=== PATIENT | female | born 1995 | race American Indian/Alaskan Native ===

== ENCOUNTER 2016-08-07 08:42 | Emergency (ER) | payer SELFPAY ==
[2016-08-07 08:50] VITALS: BP 119/81
--- NOTE | 2016-08-07 10:13 | Emergency Department Report ---
ED Female HPI - General Chief complaint: Urogenital-Female Stated complaint: PAINFUL URINATION Time Seen by Provider: 08/07/16 10:13 Source: patient Mode of arrival: Ambulatory Limitations: No Limitations - History of Present Illness MD Complaint: dysuria -: Gradual, days(s) Radiation: non-radiating Severity: moderate Severity scale (0 -10): 5 Quality: burning Consistency: constant Improves with: none Worsens with: urination Associated Symptoms: nausea/vomiting (nausea along), dysuria. denies: vaginal discharge, vaginal bleeding, abdominal pain, fever/chills, loss of appetite, hematuria - Related Data Previous Rx's Medication Instructions Recorded Last Taken Type Amoxicillin [Amoxicillin TAB] 875 mg PO BID #20 tablet 08/29/14 Unknown Rx Neomy/Polymyx B/Hc (Otic) Soln 4 drops OT TID 10 Days 08/29/14 Unknown Rx [Cortisporin (Otic) Soln] Phenazopyridine [Pyridium] 200 mg PO BID #9 tab 08/07/16 Unknown Rx Sulfamethoxazole/Trimethoprim 1 each PO BID #10 tablet 08/07/16 Unknown Rx [Bactrim DS TAB] Allergies Allergy/AdvReac Type Severity Reaction Status Date / Time No Known Allergies Allergy Verified 08/29/14 08:08 ED Review of Systems ROS: Stated complaint: PAINFUL URINATION Other details as noted in HPI Constitutional: denies: see HPI, chills, fever, malaise Eyes: denies: eye discharge Respiratory: no symptoms reported. denies: cough, orthopnea, shortness of breath, wheezing Cardiovascular: denies: chest pain, palpitations, syncope Gastrointestinal: nausea. denies: abdominal pain, vomiting, diarrhea, constipation Genitourinary: urgency, dysuria, frequency Musculoskeletal: denies: back pain Skin: denies: rash, lesions Neurological: denies: headache, weakness ED Past Medical Hx - Past Medical History Previous Medical History?: No - Surgical History Past Surgical History?: No - Social History Smoking Status: Never Smoker Substance Use Type: Alcohol - Medications Home Medications: Home Medications Medication Instructions Recorded Confirmed Last Taken Type Amoxicillin [Amoxicillin TAB] 875 mg PO BID #20 tablet 08/29/14 Unknown Rx Neomy/Polymyx B/Hc (Otic) Soln 4 drops OT TID 10 Days 04/24/15 Unknown Rx [Cortisporin (Otic) Soln] Phenazopyridine [Pyridium] 200 mg PO BID #9 tab 08/07/16 Unknown Rx Sulfamethoxazole/Trimethoprim 1 each PO BID #10 tablet 08/07/16 Unknown Rx [Bactrim DS TAB] ED Physical Exam - General Limitations: No Limitations General appearance: alert - Eye Eye exam: Present: normal appearance, PERRL, EOMI - ENT ENT exam: Present: normal exam, mucous membranes moist - Neck Neck exam: Present: normal inspection. Absent: tenderness, meningismus, lymphadenopathy - Respiratory Respiratory exam: Present: normal lung sounds bilaterally. Absent: respiratory distress - Cardiovascular Cardiovascular Exam: Present: regular rate - GI/Abdominal GI/Abdominal exam: Present: soft. Absent: distended, tenderness, guarding, rebound - Back Exam Back exam: Present: normal inspection, full ROM. Absent: CVA tenderness (R), CVA tenderness (L) - Neurological Exam Neurological exam: Present: alert, oriented X3 - Skin Skin exam: Present: warm, dry, intact, normal color ED Course Vital Signs 08/07/16 08:46 Temperature 98.6 F Pulse Rate 96 H Respiratory 18 Rate Blood Pressure 119/81 O2 Sat by Pulse 100 Oximetry ED Medical Decision Making - Lab Data Lab Results 08/07/16 Range/Units 10:11 Urine Color Yellow (Yellow) Urine Turbidity Cloudy (Clear) Urine pH 5.0 (5.0-7.0) Ur Specific [place] 1.026 (1.003-1.030) Urine Protein 100 mg/dl (Negative) mg/dL Urine Glucose (UA) Neg (Negative) mg/dL Urine Ketones Tr (Negative) mg/dL Urine Blood Lg (Negative) Urine Nitrite Neg (Negative) Urine Bilirubin Neg (Negative) Urine Urobilinogen < 2.0 (<2.0) mg/dL Ur Leukocyte Esterase Lg (Negative) Urine WBC (Auto) > 182.0 H (0.0-6.0) /HPF Urine RBC (Auto) 142.0 (0.0-6.0) /HPF U Epithel Cells (Auto) 27.0 H (0-13.0) /HPF Urine Bacteria (Auto) 1+ (Negative) /HPF Urine WBC Clumps 3+ /HPF Urine Mucus 3+ /HPF Urine HCG, Qual Negative (Negative) Critical care attestation.: If time is entered above; I have spent that time in minutes in the direct care of this critically ill patient, excluding procedure time. ED Disposition Clinical Impression: UTI (urinary tract infection) Disposition: DISCHARGED TO HOME OR SELFCARE Is pt being admited?: No Condition: Stable Instructions: Urinary Tract Infection in Women (ED) Prescriptions: Phenazopyridine [Pyridium] 200 mg PO BID #9 tab Sulfamethoxazole/Trimethoprim [Bactrim DS TAB] 1 each PO BID #10 tablet Referrals: PRIMARY CAREMD [Primary Care Provider] - 3-5 Days ROSAS DARDEN MD [Staff Physician] - 3-5 Days Forms: Work/School Release Form(ED)
[2016-08-07 10:35] LABS: Bacteria,Urine 1+ /HPF (Negative); Bilirubin,Urine NEG (Negative); Blood,Urine LG (Negative); Ketones,Urine TR mg/dL (Negative); Leukocyte Esterase,Urine LG (Negative); Mucus,Urine 3+ /HPF; Nitrite,Urine NEG (Negative); Urobilinogen,Urine < 2.0 mg/dL (<2.0)
[2016-08-07 10:36] LABS: WBC,Urine > 182.0 /HPF (0.0-6.0)
== END 2016-08-07 11:05 | disposition home or self-care (01) ==
LOC: ED 08:42
DX: N39.0 Urinary tract infection, site not specified (principal)
CPT/HCPCS: 81001; 81025; 99283

== ENCOUNTER 2017-04-14 21:16 | Emergency (ER) | payer MEDICAID, OTHER ==
[2017-04-14 23:46] LABS: Basophils % (Auto) 0.3 % (0.0-1.8); Eosinophils % (Auto) 1.2 % (0.0-4.3); Hematocrit 38.3 % (30.3-42.9); Hemoglobin 13.2 gm/dl (10.1-14.3); Mean Corpuscular HGB Conc 34 % (30-34); Mean Corpuscular Hemoglobin 31 pg (28-32); Mean Corpuscular Volume 91 fl (79-97); Platelet Count 235 K/mm3 (140-440); Red Blood Count 4.22 M/mm3 (3.65-5.03); Red Cell Distribution Width 12.6 % (13.2-15.2); White Blood Count 7.8 K/mm3 (4.5-11.0)
[2017-04-15 00:03] LABS: Anion Gap 21 mmol/L; BUN/Creatinine Ratio 14; Blood Urea Nitrogen 7 mg/dL (7-17); Carbon Dioxide 20 mmol/L (22-30); Chloride 97.8 mmol/L (98-107); Glucose 101 mg/dL (65-100); Sodium 135 mmol/L (137-145)
--- NOTE | 2017-04-15 01:04 | Ultrasound Report ---
FINAL REPORT EXAM: US OB TRANSVAGINAL HISTORY: vaginal bleeding TECHNIQUE: Routine transvaginal imaging was obtained of the pelvis along with Doppler interrogation of the uterus and adnexa. FINDINGS: The uterus measures 8.8 cm x 6 cm x 7 cm. Within the uterus is a gestational sac containing an embryo corresponding to ultrasound age of 9 weeks 0 days. There is yolk sac also within the gestational sac. The heart rate is 183 to 196 BPM. The gestational sac is normal in configuration. Free fluid is not seen. The maternal right ovary is normal size contour and echotexture measuring 3.5 cm x 1.6 cm x 3.2 cm. The maternal left ovary is normal size contour and echotexture measuring 2 cm x 1.5 cm x 1.7 cm. IMPRESSION: Viable IUP 9 weeks 0 days. heart ranges from 183-196 BPM.
[2017-04-15 01:13] LABS: Bacteria,Urine 1+ /HPF (Negative); Bilirubin,Urine NEG (Negative); Blood,Urine LG (Negative); Ketones,Urine NEG (Negative); Leukocyte Esterase,Urine LG (Negative); Mucus,Urine 2+ /HPF; Nitrite,Urine NEG (Negative); Protein,Urine <15 mg/dL mg/dL (Negative); Urobilinogen,Urine < 2.0 mg/dL (<2.0)
--- NOTE | 2017-04-15 01:25 | Ultrasound Report ---
FINAL REPORT EXAM: US OB < = 14 WEEKS FETUS HISTORY: vaginal bleeding TECHNIQUE: Transabdominal imaging was obtained of the pelvis including Doppler interrogation of the uterus and adnexa. FINDINGS: The uterus measures 8.8 cm x 6.0 cm x 7 cm. Within the uterus is a gestational sac containing an embryo measuring 23 millimeters in length. This corresponds to a 9 week 0 day IUP. The heart rate ranges from 183-196 BPM. There is a yolk sac also within the gestational sac. There is no evidence of a subchorionic hemorrhage. Free fluid is not seen in the maternal pelvis. The maternal ovaries are appropriate size contour blood flow and echotexture. The right ovary measures 3.5 cm x 1.6 cm x 3.2 cm. The left lobe measures 2.0 cm x 1.5 cm x 1.7 cm. IMPRESSION: Single viable IUP, 9 weeks 0 days. heart ranges from 183-196 BPM.
--- NOTE | 2017-04-15 05:28 | Emergency Department Report ---
ED HPI - General Chief complaint: Vaginal Bleeding Stated complaint: VAGINAL BLEEDING Time Seen by Provider: 04/15/17 03:28 Source: patient Mode of arrival: Ambulatory Limitations: No Limitations - History of Present Illness MD Complaint: abdominal pain, vaginal bleeding -: days(s) (2) Location: abdomen Radiation: LLQ, RLQ, suprapubic Severity scale (0 -10): 8 Quality: cramping Consistency: intermittent Improves with: none Worsens with: none Associated symptoms: vaginal bleeding, abdominal pain Vaginal bleeding: light :: Yes Number of weeks : 9 OB History - Current : no complications Pre-sam care: followed by OB - Related Data : 1 Para: 0 Ab: 0 Previous Rx's Medication Instructions Recorded Last Taken Type Amoxicillin [Amoxicillin TAB] 875 mg PO BID #20 tablet 08/29/14 Unknown Rx Neomy/Polymyx B/Hc (Otic) Soln 4 drops OT TID 10 Days bottle 08/29/14 Unknown Rx [Cortisporin (Otic) Soln] Phenazopyridine [Pyridium] 200 mg PO BID #9 tab 08/07/16 Unknown Rx Sulfamethoxazole/Trimethoprim 1 each PO BID #10 tablet 08/07/16 Unknown Rx [Bactrim DS TAB] metroNIDAZOLE [Flagyl] 500 mg PO Q12HR #14 tab 04/15/17 Unknown Rx Allergies Allergy/AdvReac Type Severity Reaction Status Date / Time No Known Allergies Allergy Verified 08/29/14 08:08 ED Review of Systems ROS: Stated complaint: VAGINAL BLEEDING Other details as noted in HPI Constitutional: denies: chills, fever Eyes: denies: eye pain, eye discharge, vision change ENT: denies: ear pain, throat pain Respiratory: denies: cough, shortness of breath, wheezing Cardiovascular: denies: chest pain, palpitations Endocrine: no symptoms reported Gastrointestinal: denies: nausea, diarrhea Genitourinary: denies: urgency, dysuria, discharge Musculoskeletal: denies: back pain, joint swelling, arthralgia Skin: denies: rash, lesions Neurological: denies: headache, weakness, paresthesias Psychiatric: denies: anxiety, depression Hematological/Lymphatic: denies: easy bleeding, easy bruising ED Past Medical Hx - Past Medical History Previous Medical History?: No - Surgical History Past Surgical History?: No - Family History Family history: hypertension - Social History Smoking Status: Never Smoker Substance Use Type: None - Medications Home Medications: Home Medications Medication Instructions Recorded Confirmed Last Taken Type Amoxicillin [Amoxicillin TAB] 875 mg PO BID #20 tablet 08/29/14 Unknown Rx Neomy/Polymyx B/Hc (Otic) Soln 4 drops OT TID 10 Days bottle 08/29/14 Unknown Rx [Cortisporin (Otic) Soln] Phenazopyridine [Pyridium] 200 mg PO BID #9 tab 08/07/16 Unknown Rx Sulfamethoxazole/Trimethoprim 1 each PO BID #10 tablet 08/07/16 Unknown Rx [Bactrim DS TAB] metroNIDAZOLE [Flagyl] 500 mg PO Q12HR #14 tab 04/15/17 Unknown Rx ED Physical Exam - General Limitations: No Limitations General appearance: alert, in no apparent distress - Head Head exam: Present: atraumatic, normocephalic - Eye Eye exam: Present: normal appearance - ENT ENT exam: Present: mucous membranes moist - Neck Neck exam: Present: normal inspection - Respiratory Respiratory exam: Present: normal lung sounds bilaterally. Absent: respiratory distress - Cardiovascular Cardiovascular Exam: Present: regular rate, normal rhythm. Absent: systolic murmur, diastolic murmur, rubs, gallop - GI/Abdominal GI/Abdominal exam: Present: soft, normal bowel sounds - Rectal Rectal exam: Present: deferred - External exam: Present: normal external exam, other (piercing through clitoris) Speculum exam: Present: normal speculum exam, vaginal discharge (scant white) Bi-manual exam: Present: normal bi-manual exam, uterine enlargement. Absent: cervical motion tendernes, adnexal tenderness, adnexal mass - Extremities Exam Extremities exam: Present: normal inspection - Back Exam Back exam: Present: normal inspection - Neurological Exam Neurological exam: Present: alert, oriented X3 - Psychiatric Psychiatric exam: Present: normal affect, normal mood - Skin Skin exam: Present: warm, dry, intact, normal color. Absent: rash ED Course Vital Signs 04/14/17 04/15/17 23:23 02:01 Temperature 98.8 F 99.3 F Pulse Rate 82 88 Respiratory 16 Rate Blood Pressure 103/60 Blood Pressure 106/59 [Right] O2 Sat by Pulse 100 100 Oximetry ED Medical Decision Making - Lab Data Result diagrams: 04/14/17 23:32 04/14/17 23:32 - Radiology Data Radiology results: report reviewed (us: siup, 9weeks and o0 days, hr 183-196) Critical care attestation.: If time is entered above; I have spent that time in minutes in the direct care of this critically ill patient, excluding procedure time. ED Disposition Clinical Impression: Trichomoniasis of vagina, Bacterial vaginosis, Threatened miscarriage Abdominal pain during Qualifiers: Trimester: first trimester Qualified Code(s): O26.891 - Other specified related conditions, first trimester; R10.9 - Unspecified abdominal pain; R10.9 - Unspecified abdominal pain Disposition: - TO HOME OR SELFCARE Is pt being admited?: No Does the pt Need Aspirin: No Condition: Stable Instructions: Bacterial Vaginosis (ED) Prescriptions: metroNIDAZOLE [Flagyl] 500 mg PO Q12HR #14 tab Referrals: AYLA GRIFFIN MD [Primary Care Provider] - 3-5 Days Forms: STI Treatment and Prevention
[2017-04-15] MEDS ORDERED: FLAGYL PO ONE (05:29)
[2017-04-15 06:06] VITALS: BP 101/61
== END 2017-04-15 06:06 | disposition home or self-care (01) ==
LOC: ED 21:16
DX: O20.0 Threatened abortion (principal); O23.591 Infection of other part of genital tract in pregnancy, first trimester; A59.9 Trichomoniasis, unspecified; B96.89 Other specified bacterial agents as the cause of diseases classified elsewhere; Z3A.09 9 weeks gestation of pregnancy
CPT/HCPCS: 36415; 76801; 76817; 80048; 81001; 84702; 85025; 87210; 87591

== ENCOUNTER 2017-04-19 02:16 | Day surgery (SDC) | payer MEDICAID, OTHER ==
[2017-04-19 06:21] LABS: Basophils % (Auto) 0.4 % (0.0-1.8); Hematocrit 40.2 % (30.3-42.9); Hemoglobin 13.7 gm/dl (10.1-14.3); Mean Corpuscular HGB Conc 34 % (30-34); Mean Corpuscular Hemoglobin 31 pg (28-32); Mean Corpuscular Volume 91 fl (79-97); Platelet Count 264 K/mm3 (140-440); Red Blood Count 4.43 M/mm3 (3.65-5.03); Red Cell Distribution Width 12.6 % (13.2-15.2); White Blood Count 10.6 K/mm3 (4.5-11.0)
[2017-04-19] MEDS ORDERED: NACL 0.9% 1000 ML 1,000 ML IV ONE ×2 (06:35→08:04)
--- NOTE | 2017-04-19 07:42 | Ultrasound Report ---
Pelvic and transvaginal sonography: History: Vaginal bleeding. Findings: Uterus measures 14.4 x 4.5 x 7.4 cm. Endometrial thickness 15.9 mm. The didn't traverse apical septal segment noted within the endometrial cavity. No intrauterine gestation. The right ovary 3.1 x 1.2 x 1.6 cm. No mass. Left ovary 2.9-1.3 x 1.3 cm. No mass. No fluid in the cul-de-sac. Impression: Retained products of conceptus is noted within the uterus.
[2017-04-19] MEDS ORDERED: ZOFRAN IV ONE (08:04)
[2017-04-19] MEDS ORDERED: MORPHINE IV ONE (08:04)
--- NOTE | 2017-04-19 08:27 | Emergency Department Report ---
ED Female HPI - General Chief complaint: Vaginal Bleeding Stated complaint: POSSIBLE MISCARRIED Time Seen by Provider: 04/19/17 08:08 Source: patient Mode of arrival: Ambulatory Limitations: No Limitations - History of Present Illness Initial comments: Patient is 22 years old female 1 para 0 at 10 weeks gestation, presented to the ER with vaginal bleeding for the last week get worse this morning. Patient stated that around 4:30 this morning she passed the fetus, patient does have a picture on her iPhone for that. Patient also complaining of lower abdominal pain cramping nature. Patient denied any fever, nausea, vomiting or diarrhea. MD Complaint: vaginal bleeding -: week(s) - Related Data Home Medications Medication Instructions Recorded Confirmed Last Taken No Known Home Medications [No 04/19/17 04/19/17 Unknown Reported Home Medications] Allergies Allergy/AdvReac Type Severity Reaction Status Date / Time No Known Allergies Allergy Verified 08/29/14 08:08 ED Review of Systems ROS: Stated complaint: POSSIBLE MISCARRIED Other details as noted in HPI Comment: All other systems reviewed and negative Constitutional: denies: chills, fever ENT: denies: throat pain, dental pain, hearing loss Respiratory: denies: cough, shortness of breath Cardiovascular: denies: chest pain, palpitations, dyspnea on exertion Gastrointestinal: abdominal pain. denies: nausea, vomiting, diarrhea, constipation, hematemesis Genitourinary: denies: urgency Neurological: denies: headache, weakness, numbness, paresthesias ED Past Medical Hx - Past Medical History Previous Medical History?: No - Surgical History Past Surgical History?: No - Social History Smoking Status: Never Smoker Substance Use Type: None - Medications Home Medications: Home Medications Medication Instructions Recorded Confirmed Last Taken Type No Known Home Medications [No 04/19/17 04/19/17 Unknown History Reported Home Medications] ED Physical Exam - General Limitations: No Limitations General appearance: alert, in no apparent distress - Head Head exam: Present: atraumatic, normocephalic, normal inspection - Eye Eye exam: Present: normal appearance, PERRL - ENT ENT exam: Present: normal exam, normal orophraynx, mucous membranes moist - Neck Neck exam: Present: normal inspection, full ROM. Absent: tenderness, meningismus, lymphadenopathy - Respiratory Respiratory exam: Present: normal lung sounds bilaterally. Absent: respiratory distress, wheezes, rales, rhonchi, chest wall tenderness - Cardiovascular Cardiovascular Exam: Present: tachycardia, normal heart sounds. Absent: systolic murmur, diastolic murmur - GI/Abdominal GI/Abdominal exam: Present: soft, tenderness, normal bowel sounds. Absent: distended, guarding, rebound, rigid, diminished bowel sounds, organomegaly, mass , bruit, pulsatile mass, hernia - External exam: Present: normal external exam Speculum exam: Present: vaginal bleeding (active bleeding with clots.) - Extremities Exam Extremities exam: Present: normal inspection, full ROM, normal capillary refill. Absent: pedal edema - Back Exam Back exam: Present: normal inspection. Absent: tenderness, CVA tenderness (R), CVA tenderness (L) - Neurological Exam Neurological exam: Present: alert, oriented X3, CN II-XII intact, normal gait. Absent: abnormal gait, motor sensory deficit, reflexes normal - Psychiatric Psychiatric exam: Present: normal affect - Skin Skin exam: Present: warm, dry, intact ED Course Vital Signs 04/19/17 04/19/17 04/19/17 02:36 06:10 06:12 Temperature 98.6 F Pulse Rate 102 H 107 H 109 H Respiratory 17 22 32 H Rate Blood Pressure 116/76 108/66 Blood Pressure [Left] O2 Sat by Pulse 100 Oximetry 04/19/17 04/19/17 04/19/17 06:17 07:44 07:51 Temperature Pulse Rate 89 Respiratory 18 13 16 Rate Blood Pressure 95/56 Blood Pressure 89/56 [Left] O2 Sat by Pulse 96 Oximetry 04/19/17 04/19/17 04/19/17 08:00 08:16 08:30 Temperature Pulse Rate 89 90 92 H Respiratory 25 H 17 24 Rate Blood Pressure 89/56 95/56 Blood Pressure 97/60 [Left] O2 Sat by Pulse 99 Oximetry 04/19/17 04/19/17 09:00 09:30 Temperature Pulse Rate 88 85 Respiratory 21 12 Rate Blood Pressure 94/54 93/46 Blood Pressure [Left] O2 Sat by Pulse Oximetry ED Medical Decision Making - Lab Data Result diagrams: 04/19/17 06:13 04/19/17 08:40 - Radiology Data Radiology results: report reviewed Referring Physician: HILARIO WASHINGTON Patient Name: TREASURE STEWARDARUN Date of : 1995 Sex: Female Report Date: 2017-04-19 Report Status: Finalized Findings [facility] [address] [place] [address] Ultrasound Report Signed Patient: TREASURE VERDE MR#: [id number] : 1995 Acct:[id number] Age/Sex: 22 / F ADM Date: 04/19/17 Loc: ED Attending Dr: Ordering Physician: HILARIO WASHINGTON Date of Service: 04/19/17 Procedure(s): US OB transvaginal Accession Number(s): [id number] cc: HILARIO WASHINGTON Pelvic and transvaginal sonography: History: Vaginal bleeding. Findings: Uterus measures 14.4 x 4.5 x 7.4 cm. Endometrial thickness 15.9 mm. The didn't traverse apical septal segment noted within the endometrial cavity. No intrauterine gestation. The right ovary 3.1 x 1.2 x 1.6 cm. No mass. Left ovary 2.9-1.3 x 1.3 cm. No mass. No fluid in the cul-de-sac. Impression: Retained products of conceptus is noted within the uterus. Transcribed By: PTP Dictated By: VICENTE PETTIT MD Electronically Authenticated By: VICENTE PETTIT MD Signed Date/Time: 04/19/17724 DD/ 3 TD/TT: 04/19/17724 - Medical Decision Making Discussed with Dr. Meade, inform about the patient, he advised to type and cross match 4 units PRBC, IM methargen, he stated that he is taking the patient for a D&C. Critical Care Time: Yes Critical care time in (mins) excluding proc time.: 35 Critical care attestation.: If time is entered above; I have spent that time in minutes in the direct care of this critically ill patient, excluding procedure time. ED Disposition Clinical Impression: Vaginal bleeding before 22 weeks gestation, Hypotension due to blood loss, Incomplete miscarriage with blood clot, Abdominal pain complicating , antepartum Disposition: OP ADMIT IP TO THIS HOSP Is pt being admited?: Yes Condition: Stable
[2017-04-19] MEDS ORDERED: NACL 0.9% 500 ML 500 ML IV ONE (09:01)
[2017-04-19] MEDS ORDERED: METHERGINE IM ONE ×3 (09:03→11:26)
[2017-04-19 09:25] LABS: Anion Gap 16 mmol/L; BUN/Creatinine Ratio 13; Blood Urea Nitrogen 5 mg/dL (7-17); Calcium 7.9 mg/dL (8.4-10.2); Carbon Dioxide 20 mmol/L (22-30); Chloride 104.6 mmol/L (98-107); Glucose 99 mg/dL (65-100); Sodium 137 mmol/L (137-145)
[2017-04-19] MEDS ORDERED: SUBLIMAZE ONE (09:53)
[2017-04-19] MEDS ORDERED: XYLOCAINE MPF 2% ONE (09:53)
[2017-04-19] MEDS ORDERED: DIPRIVAN 10 MG/ML IV ONE (09:53)
--- NOTE | 2017-04-19 09:58 | Short Stay Summary ---
Short Stay Documentation Date of service: 04/19/17 Narrative H&P: 22 yo G1 unreferred patient who was seen in the emergency room who had documented viable IUP at 9 weeks in this ER last week. Now comes in with heavy vaginal bleeding and has retained products per u/s. Passed fetus at home, I saw picture on mom's phone. BP fairly low but pulse only 86. No care due to Medicaid problems as usual. MBT O+, Hct 40 prior to procedure - History Principal diagnosis: incomplete AB at 9-10 weeks Past Medical History: No medical history Past Surgical History: No surgical history Social history: no significant social history, single - Allergies and Medications Current Medications: Allergies No Known Allergies Allergy (Verified 08/29/14 08:08) Home Medications Medication Instructions Recorded Confirmed Last Taken Type No Known Home Medications [No 04/19/17 04/19/17 Unknown History Reported Home Medications] - Physical exam General appearance: mild distress Integumentary: no rash HEENT: Atraumatic Lungs: Clear to auscultation Breasts: deferred Heart: Regular rate, No murmurs Gastrointestinal: normal Female Genitourinary: deferred Extremities: No edema Neurological: Normal speech, Cranial nerves 3-12 NL - Brief post op/procedure progress note Date of procedure: 04/19/17 Pre-op diagnosis: incomplete at 9-10 weeks Post-op diagnosis: same (and hemorrhage due to uterine atony) Procedure: Suction and sharp uterine curettage Anesthesia: GETA Findings: See op note, 1600 mL blood loss due to uterine atony which finally responded to multiple measures Surgeon: CHARLIE DOOLEY Estimated blood loss: other (1600 mL) Pathology: list (products of conception and multiple blood clots) Specimen disposition: to lab Condition: stable - Hospital course Hospital course: stat H&H post procedure was 6.5 and 18.0 and the decision was made to transfuse the patient 2 units of packed red blood cells prior to discharge - Disposition Condition at discharge: Good Disposition: DC-01 TO HOME OR SELFCARE - Discharge Diagnoses (1) Incomplete miscarriage with blood clot Status: Acute (2) 10 weeks gestation of Status: Acute (3) Anemia, blood loss Status: Acute (4) Hypotension due to blood loss Status: Acute Short Stay Discharge Plan Activity: no restrictions (pelvic rest) Weight Bearing Status: Full Weight Bearing Diet: regular Follow up with: PRIMARY CARE, [Primary Care Provider] - 3-5 Days Prescriptions: Ferrous Sulfate [Feosol] 325 mg PO BID #60 tablet Ibuprofen [Motrin 600 MG tab] 600 mg PO Q8H PRN #30 tablet PRN Reason: Pain Misoprostol [Cytotec] 200 mcg PO QID 3 Days #12 tablet
--- NOTE | 2017-04-19 10:15 | Anesthesia Consultation ---
Anesthesia Consult and Med Hx Date of service: 04/19/17 - Airway Anesthetic Teeth Evaluation: Good ROM Head & Neck: Adequate Mental/Hyoid Distance: Adequate Mallampati Class: Class II Intubation Access Assessment: Probably Good - Pulmonary Exam CTA: Yes - Cardiac Exam Cardiac Exam: RRR - Pre-Operative Health Status ASA Pre-Surgery Classification: ASA2 Proposed Anesthetic Plan: General - Pre-Anesthesia Comment Pre-Anesthesia Comments: Missed AB, 10 weeks - Pulmonary Hx Smoking: No - Cardiovascular System Hx Hypertension: No - Additional Comments Anesthesia Medical History Comments: Pt denies any familial anesthesia complication
--- NOTE | 2017-04-19 10:16 | Anesthesia Day of Surgery ---
Anesthesia Day of Surgery - Day of Surgery Patient Examined: Yes Patient H&P Reviewed: Yes Patient is NPO: Yes
[2017-04-19] MEDS ORDERED: NACL 0.9% IR ONE (10:46)
[2017-04-19] MEDS ORDERED: PEPCID IV NR (11:00)
[2017-04-19] MEDS ORDERED: VERSED IV NR (11:00)
[2017-04-19] MEDS ORDERED: DECADRON ONE (11:06)
[2017-04-19] MEDS ORDERED: ZOFRAN ONE (11:06)
[2017-04-19] MEDS ORDERED: SILVER NITRATE TP ONE (11:08)
[2017-04-19] MEDS ORDERED: NEO SYNEPHRINE/NS Syringe(OR USE) IV ONE (11:14)
[2017-04-19] MEDS ORDERED: NACL 0.9% 1000 ML 1,000 ML ONE ×3 (11:15→13:31)
[2017-04-19] MEDS ORDERED: CYTOTEC PR ONE (11:26)
[2017-04-19] MEDS ORDERED: CYTOTEC VG ONE (12:00)
[2017-04-19] MEDS ORDERED: DEMEROL ONE (12:09)
--- NOTE | 2017-04-19 12:09 | Operative Report ---
Operative Report Operative Report: Date of procedure: 04/19/2017 Pre-operative diagnosis: Spontaneous incomplete at 9-10 weeks in a primigravida Post-operative diagnosis: Same plus operative hemorrhage due to moderately severe uterine atony requiring Methergine, Pitocin, 800 mg of Cytotec and uterine massage. Procedure name(s): Suction and sharp uterine curettage Surgeon: Patrizia Meade M.D. [place] Caster: SILVIO Anesthesia: Gen. endotracheal Findings: EUA revealed a 10-11 week size uterus on bimanual exam, cervix was already dilated and easily admitted an 8 mm curved curette. Patient had hypotension consistent with with very low blood pressures and relatively normal pulse. Patient was reportedly bleeding briskly in the ER, but I did not see that she lost an excessive amount at the time of D&C secondary to uterine atony that required a number of measures EBL: 1600 mL Procedure in detail: Patient was taken to the operating room, placed in the supine position. After adequate general endotracheal anesthesia was obtained she was prepped and draped in the dorsolithotomy position and the bladder was drained sterilely. Initially, antibiotics were not given because they are not indicated in this situation, but after multiple instrumentation due to uterine atony, I felt it was prudent to give 2 g of Ancef. The cervix was exposed with retractors and grasped vertically with a single-tooth tenaculum 8 mm suction curette was passed through into the uterus and circumferential suction was carried out in the usual fashion. The uterus was felt to be empty however it failed to clamp down in the usual fashion and bleeding was very brisk and pouring out of the cervix. Because of the excessive bleeding. We gave the second dose of IM Methergine and started a Pitocin infusion with 40 mIu in 1000 mL and called for 800 mg of Cytotec. Suction curettage was continued and again the uterus was felt to be empty. And an abundance of caution, the uterus was explored twice with the uterine forceps and brief sharp curettage was carried out in a circumferential fashion. None of this was productive of any additional tissue. The Cytotec was brought to the operating room and placed 800 mg of Cytotec in the patient's rectum in a sterile fashion. I removed the instruments from the vagina and performed bimanual massage for a few minutes. The uterus finally responded to the last 2 maneuvers and clamped down in the usual fashion and the bleeding stopped. The patient was observed for a few minutes under anesthesia. While we attempted to assess the estimated blood loss , there was no further bleeding observed. The patient was then cleaned up placed back in the supine position, awakened and discharged to recovery room in good condition with plans to get another hematocrit to assess the need for transfusion.
[2017-04-19] MEDS ORDERED: LACTATED RINGERS 1,000 ML ONE (12:13)
[2017-04-19 12:38] LABS: Hemoglobin 6.5 gm/dl (10.1-14.3)
[2017-04-19 12:57] LABS: Hematocrit 18.8 % (30.3-42.9)
[2017-04-19] MEDS ORDERED: ANCEF ONE (12:57)
[2017-04-19 15:26] LABS: Hematocrit 27.2 % (30.3-42.9)
[2017-04-19 17:06] VITALS: BP 95/49
== END 2017-04-19 17:01 | disposition home or self-care (01) ==
LOC: ED 02:16 → OR 10:17
PROVIDERS: ATTEND Obstetrics & Gynecology
DX: O03.4 Incomplete spontaneous abortion without complication (principal); N89.8 Other specified noninflammatory disorders of vagina; I95.9 Hypotension, unspecified; Z3A.10 10 weeks gestation of pregnancy
CPT/HCPCS: 36415; 59812; 76801; 76817; 80048; 84702; 85014; 85018; 85025; 86850; 86900; 86901; 86920; 88305; J0690; J1100; J2175; J2210; J2250; J2270; J2370; J2405; J2590; J2704; J3010; J7030; J7120; P9016

== ENCOUNTER 2019-08-10 15:01 | Inpatient (IN) | payer MEDICAID ==
[2019-08-10] MEDS ORDERED: ePHEDrine SULFATE 50 MG/1 ML INJ IV PRN ×2 (16:12→18:12)
[2019-08-10] MEDS ORDERED: ONDANSETRON 4 MG/2 ML INJ IV PRN ×2 (16:12→22:12)
[2019-08-10] MEDS ORDERED: MINERAL OIL 30 ML ORAL LIQD PO PRN (16:12)
[2019-08-10] MEDS ORDERED: NalbUPHINE 10 MG/1 ML INJ IV PRN (16:12)
[2019-08-10] MEDS ORDERED: BUTORPHANOL 2 MG/1 ML INJ IV PRN ×2 (16:12)
[2019-08-10] MEDS ORDERED: TERBUTALINE 1 MG/1 ML INJ SUB-Q PRN (16:12)
[2019-08-10] MEDS ORDERED: TERBUTALINE 1 MG/1 ML INJ IVP PRN (16:12)
[2019-08-10 16:24] LABS: Hematocrit 35.2 % (30.3-42.9); Hemoglobin 11.3 gm/dl (10.1-14.3); Mean Corpuscular HGB Conc 32 % (30-34); Mean Corpuscular Volume 84 fl (79-97); Red Blood Count 4.21 M/mm3 (3.65-5.03); Red Cell Distribution Width 15.9 % (13.2-15.2)
[2019-08-10] MEDS ORDERED: AMPICILLIN/NS 2 GM/100 ML 2 GM/100 ML BAG IV ONE (16:30)
[2019-08-10 16:32] LABS: Platelet Count 272 K/mm3 (140-440)
[2019-08-10] MEDS: fentaNYL 100 MCG/2 ML INJ IV PRN ×2 (16:42→18:27)
[2019-08-10] MEDS ORDERED: OXYTOCIN DRIP 30 UNITS/500 ML BAG IV SCH ×2 (17:00)
[2019-08-10] MEDS ORDERED: LIDOCAINE (2%) 20 MG/1 ML VIAL 20 ML MDV INFILTRATI ONE ×2 (17:00→19:04)
[2019-08-10] MEDS ORDERED: OXYTOCIN 20 UNIT/1000ML DRIP 20 UNITS/1,000 ML BAG IV SCH (17:00)
[2019-08-10] MEDS ORDERED: LACTATED RINGERS 1,000 ML IV SCH (17:00)
[2019-08-10] MEDS ORDERED: NALOXONE 2 MG/2 ML INJ IV PRN (18:12)
[2019-08-10] MEDS ORDERED: DEXMEDETOMIDINE 200 MCG/2 ML VIAL IV ONE (18:17)
[2019-08-10] MEDS ORDERED: fentaNYL-BUPIV 2 MCG/ML-0.125% 200 MCG/100 ML BAG EPIDURAL SCH (19:00)
--- NOTE | 2019-08-10 19:20 | History and Physical Report ---
History of Present Illness Date of examination: 08/10/19 Date of admission: 08/10/19 15:02 Chief complaint: I'm having contractions History of present illness: Pt is a 24 year old who presents in active labor at 40.2 weeks with EDC 08/08/19. She initiated care with [facility] in her first trimester, however, records are not available for review. Per the patient she has had an uncomplicated history and is GBS positive. Past History Past Medical History: no pertinent history Past Surgical History: no surgical history Family/Genetic History: none Social history: single - Obstetrical History Expected Date of Delivery: 08/08/19 Actual Gestation: 40 Week(s) 2 Day(s) : 2 Number of Living Children: 0 Medications and Allergies Allergies Allergy/AdvReac Type Severity Reaction Status Date / Time No Known Allergies Allergy Verified 08/10/19 15:21 Home Medications Medication Instructions Recorded Confirmed Last Taken Type Ferrous Sulfate [Feosol] 325 mg PO BID #60 tablet 04/19/17 Unknown Rx Ibuprofen [Motrin 600 MG tab] 600 mg PO Q8H PRN #30 tablet 04/19/17 Unknown Rx miSOPROStoL [Cytotec] 200 mcg PO QID 3 Days #12 tablet 04/19/17 Unknown Rx Active Meds: Active Medications Butorphanol Tartrate (Stadol) 1 mg IV Q2H PRN PRN Reason: Labor Pain Butorphanol Tartrate (Stadol) 2 mg IV Q2H PRN PRN Reason: Pain , Severe (7-10) Ephedrine Sulfate (Ephedrine Sulfate) 10 mg IV Q2M PRN PRN Reason: Hypotension Ephedrine Sulfate (Ephedrine Sulfate) 10 mg IV Q2M PRN PRN Reason: Hypotension Fentanyl (Sublimaze) 100 mcg IV Q2H PRN PRN Reason: Labor Pain Last Admin: 08/10/19 16:42 Dose: 100 mcg Documented by: Oxytocin/Sodium Chloride (Pitocin/Ns 20 Unit/1000ml Drip) 20 units in 1,000 mls @ 125 mls/hr IV DIRECT BLAIRE Last Admin: 08/10/19 19:06 Dose: 125 mls/hr Documented by: Oxytocin/Sodium Chloride (Pitocin/Ns 30 Unit/500ml) 30 units in 500 mls @ 1 mls/hr IV TITR BLAIRE; Protocol Oxytocin/Sodium Chloride (Pitocin/Ns 30 Unit/500ml) 30 units in 500 mls @ 2 mls/hr IV TITR BLAIRE; Protocol Lactated Ringer's (Lactated Ringers) 1,000 mls @ 125 mls/hr IV DIRECT BLAIRE Last Admin: 08/10/19 16:43 Dose: 125 mls/hr Documented by: Ampicillin Sodium (Ampicillin/Ns 1 Gm/50 Ml) 1 gm in 50 mls @ 100 mls/hr IV Q4H BLAIRE; Protocol Fentanyl/Bupivacaine/Sodium Chlor (Fentanyl-Bupiv 2 Mcg/Ml-0.125%) 200 mcg in 100 mls @ 12 mls/hr EPIDURAL TITR BLAIRE; Protocol Mineral Oil (Mineral Oil) 30 ml PO QHS PRN PRN Reason: Constipation Nalbuphine HCl (Nalbuphine) 10 mg IV Q2H PRN PRN Reason: Pain, Moderate (4-6) Naloxone HCl (Naloxone) 0.2 mg IV Q5M PRN PRN Reason: Respiratory sedation Ondansetron HCl (Zofran) 4 mg IV Q8H PRN PRN Reason: Nausea And Vomiting Terbutaline Sulfate (Brethine) 0.25 mg SUB-Q ONCE PRN PRN Reason: Hyperstimulation/Hypertonicity Terbutaline Sulfate (Brethine) 0.25 mg IVP ONCE PRN PRN Reason: Hyperstimulation/Hypertonicity Review of Systems All systems: negative Genitourinary: pelvic pain, contractions - Vital Signs Vital signs: Vital Signs Pulse BP 100 H 119/73 08/10/19 15:19 08/10/19 15:19 Temp Pulse Resp BP Pulse Ox 109 H 123/82 100 08/10/19 19:09 08/10/19 19:02 08/10/19 19:09 - Physical Exam Breasts: Positive: deferred Cardiovascular: Regular rate, Normal S1, Normal S2 Lungs: Positive: Clear to auscultation, Normal air movement Abdomen: Positive: normal appearance, soft, normal bowel sounds. Negative: distention, tenderness Genitourinary (Female): Positive: normal external genitalia, normal perenium Vulva: both: normal Vagina: Positive: normal moisture. Negative: discharge Cervix: Negative: lesion, discharge Uterus: Positive: normal size, normal contour Adnexa: both: normal Anus/Rectum: Positive: normal perianal skin, heme negative. Negative: rectal mass, hemorrhoids Extremities: Deep Tendon Reflex Grade: Normal +2 - Obstetrical FHR: auscultation normal Cervical Dilatation: 4 Cervical Effacement Percentage: 70 station: -2 Uterine Contraction Pattern: Regular Uterine Contraction Intensity: Moderate Results Result Diagrams: 08/10/19 15:53 Abnormal lab results 08/10/19 Range/Units 15:53 MCH 27 L (28-32) pg RDW 15.9 H (13.2-15.2) % All other labs normal. Assessment and Plan IUP at 40.2 weeks in active labor. Admit to L&D. Pt may have epidural. Anticipate .
--- NOTE | 2019-08-10 19:28 | Procedure Note ---
OB Delivery Note - Delivery Date of Delivery: 08/10/19 Surgeon: MERCEDES WILKINSON Estimated blood loss: 200cc - Vaginal Delivery presentation: vertex Delivery position: OA Intrapartum events: none Delivery induction: none Delivery monitor: external FHT, external uterine Route of delivery: Delivery placenta: spontaneous Delivery cord: nuchal cord, 3 umbilical vessels Episiotomy: none Delivery laceration: 1st degree Delivery repair: vicryl Anesthesia: local Delivery comments: Viable female delivered over intact perineum with loose nuchal cord easily reduced. Infant had vigorous cry. Agars 8,9. Weight 6 pounds 15 ounces. Placenta delivered spontaneously and intact with 3vc. Small first degree laceration repaired with 2.0 vicryl. Pt tolerated procedure well. EXcellent hemostasis. - Infant A at 1 minute: 8 at 5 minutes: 9 Gender: Female (6 pounds 15 ounces)
[2019-08-10] MEDS ORDERED: AMPICILLIN/NS 1 GM/50 ML 1 GM/50 ML BAG IV SCH (20:30)
[2019-08-10] MEDS ORDERED: ACETAMINOPHEN 325 MG TAB PO PRN (22:12)
[2019-08-10] MEDS ORDERED: WITCH HAZEL/ GLYCERIN PAD TP PRN (22:12)
[2019-08-10] MEDS ORDERED: MAGNESIUM HYDROXIDE (MOM) ORAL LIQD UDC PO PRN (22:12)
[2019-08-10] MEDS ORDERED: HYDROcodone/ACETAMINOPHEN 5-325 MG TAB PO PRN (22:12)
[2019-08-10] MEDS ORDERED: LANOLIN/ZINC/DIMETHICONE (LANSINOH) 7 GM TP PRN (22:12)
[2019-08-10] MEDS ORDERED: diphenhydrAMINE 25 MG CAP PO PRN (22:12)
[2019-08-10] MEDS ORDERED: PROMETHAZINE 25 MG TAB PO PRN (22:12)
[2019-08-10] MEDS ORDERED: PROMETHAZINE 25 MG RECT SUPP PR PRN (22:12)
[2019-08-11] MEDS: DOCUSATE SODIUM 100 MG CAP PO SCH ×3 (05:46→22:04)
[2019-08-11] MEDS: IBUPROFEN 600 MG TAB PO SCH ×2 (05:47→12:56)
[2019-08-11 08:03] LABS: Hematocrit 31.1 % (30.3-42.9)
--- NOTE | 2019-08-11 12:21 | Progress Note ---
Assessment and Plan PPD 1 s/p . Doing well. Plan for discharge on tomorrow due to need for 48 hour watch for incomplete GBS therapy Subjective - Subjective Date of service: 08/11/19 Interval history: Pt is a 24 year old who presents in active labor at 40.2 weeks with EDC 08/08/19. She initiated care with [facility] in her first trimester, however, records are not available for review. Per the patient she has had an uncomplicated history and is GBS positive. Patient reports: appetite normal, voiding normally, pain well controlled, ambulating normally : doing well Objective - Vital Signs Latest vital signs: Vital Signs Temp Pulse Resp BP BP Pulse Ox 08/11/19 04:51 99.4 F 95 H 20 93/46 98 08/10/19 21:40 98.7 F 93 H 18 110/66 08/10/19 20:19 82 99 08/10/19 20:16 93 H 131/68 08/10/19 20:14 92 H 99 08/10/19 20:09 89 99 08/10/19 20:04 90 99 08/10/19 20:01 86 124/76 08/10/19 19:59 85 100 08/10/19 19:54 89 100 08/10/19 19:49 80 99 08/10/19 19:46 88 123/70 08/10/19 19:44 93 H 99 08/10/19 19:39 104 H 99 08/10/19 19:34 94 H 99 08/10/19 19:31 104 H 127/76 08/10/19 19:29 98 H 99 08/10/19 19:24 103 H 99 08/10/19 19:19 97 H 100 08/10/19 19:16 100 H 127/77 08/10/19 19:14 98 H 100 08/10/19 19:09 109 H 100 08/10/19 19:04 100 H 100 08/10/19 19:02 110 H 123/82 08/10/19 19:00 98.2 F 91 H 92 08/10/19 18:59 65 98 08/10/19 18:54 150 H 81 L 08/10/19 18:53 124 H 98 08/10/19 18:48 111 H 99 08/10/19 18:46 116 H 134/81 08/10/19 18:43 95 H 100 08/10/19 18:38 106 H 100 08/10/19 18:33 119 H 100 08/10/19 18:30 94 H 124/77 08/10/19 18:01 108 H 120/66 08/10/19 16:16 98.7 F 18 08/10/19 15:51 105 H 93 08/10/19 15:50 103 H 95 08/10/19 15:45 99 H 96 08/10/19 15:44 99 H 94 08/10/19 15:40 104 H 94 08/10/19 15:38 107 H 93 08/10/19 15:35 107 H 95 08/10/19 15:30 98 H 96 08/10/19 15:28 109 H 94 08/10/19 15:25 98 H 96 08/10/19 15:20 103 H 94 08/10/19 15:19 100 H 119/73 Intake and Output 08/10/19 08/11/19 08/11/19 22:59 06:59 14:59 Intake Total 240 240 Output Total 900 Balance -660 240 Intake: Oral 240 240 Output: Urine 900 Void 900 Other: Total, Intake Amount 240 240 Total, Output Amount 900 # Voids Void 2 1 Weight 63.503 kg Estimated Blood Loss 200 - Exam Breasts: Present: deferred Cardiovascular: Present: Regular rate, Normal S1, Normal S2 Lungs: Present: Clear to auscultation, Normal air movement Abdomen: Present: normal appearance, soft Vulva: both: normal Uterus: Present: normal, firm Extremities: Present: normal Deep Tendon Reflex Grade: Normal +2 - Labs Labs: Abnormal lab results 08/10/19 08/11/19 Range/Units 15:53 07:48 Hgb 10.0 L (10.1-14.3) gm/dl MCH 27 L (28-32) pg RDW 15.9 H (13.2-15.2) %
[2019-08-11] MEDS: PRENATAL VIT27-FE FUMARATE-FOLIC ACID VIT TAB PO SCH (12:57)
[2019-08-12] MEDS: IBUPROFEN 600 MG TAB PO SCH ×2 (05:56→11:48)
--- NOTE | 2019-08-12 08:29 | Progress Note ---
Assessment and Plan A: PPD#2 s/p at term P: Routine care. Discharge later today Subjective - Subjective Date of service: 08/12/19 Principal diagnosis: s/p at term Interval history: No issues. Patient reports: appetite normal, voiding normally, ambulating normally : doing well Objective - Vital Signs Latest vital signs: Vital Signs Temp Pulse Resp BP Pulse Ox 08/12/19 06:56 18 08/12/19 05:56 18 08/11/19 23:37 98.5 F 84 18 102/57 99 08/11/19 16:09 98.1 F 100 H 20 114/78 99 08/11/19 12:39 98.1 F 99 H 20 101/61 97 Intake and Output 08/11/19 08/12/19 08/12/19 22:59 06:59 14:59 Intake Total 480 480 Balance 480 480 Intake: Oral 240 Intake, Free Water 240 480 Other: Total, Intake Amount 240 # Voids Void 1 1 - Exam Breasts: Present: deferred Abdomen: Present: soft Uterus: Present: fundal height below umbilicus Extremities: Present: normal
--- NOTE | 2019-08-12 08:30 | Discharge Summary ---
Providers - Providers Date of Admission: 08/10/19 15:02 Date of discharge: 08/12/19 Attending physician: GIANCARLO ORTIZ Primary care physician: GIANCARLO ORTIZ Hospitalization Reason for admission: active labor Delivery: Procedure details: Please see delivery note Episiotomy: none Laceration: 1st degree Other procedures: none complications: none Discharge diagnosis: IUP at term delivered [place] baby: female Hospital course: Pt was admitted in active labor and went on to have a spontaneous vaginal delivery which she tolerated well. Her course was uncomplicated and she met discharge criteria on PPD#2. She will follow up in 4 wks. Condition at discharge: Stable Disposition: DC-01 TO HOME OR SELFCARE - Discharge Diagnoses (1) Term of female Status: Acute Plan - Discharge Medications Prescriptions: Ibuprofen [Motrin] 800 mg PO Q8HR PRN #30 tablet PRN Reason: Pain, Moderate (4-6) HYDROcodone/APAP 5-325 [Mcewen 5/325] 1 each PO Q6HR PRN #20 tablet PRN Reason: Pain - Provider Discharge Summary Additional instructions: [] Smoking cessation referral if applicable(refer to patient education folder for contact #) [] Refer to [facility] Booklet Call your doctor immediately for: * Fever > 100.5 * Heavy vaginal bleeding ( >1 pad per hour) * Severe persistent headache * Shortness of breath * Reddened, hot, painful area to leg or breast * Drainage or odor from incision. * Keep incision clean and dry at all times and follow doctor's instructions regarding bathing/showering - Follow up plan Follow up: GIANCARLO ORTIZ MD [Primary Care Provider] - 7 Days
[2019-08-12] MEDS: DOCUSATE SODIUM 100 MG CAP PO SCH (11:48)
[2019-08-12] MEDS: PRENATAL VIT27-FE FUMARATE-FOLIC ACID VIT TAB PO SCH (11:48)
[2019-08-12 18:05] VITALS: BP 109/61
== END 2019-08-12 20:29 | disposition home or self-care (01) | DRG 775 ==
LOC: TRG 15:01 → LD 15:02 → OB 21:26
PROVIDERS: ADMIT Obstetrics & Gynecology; ATTEND Obstetrics & Gynecology
PROC: 10E0XZZ Delivery of Products of Conception, External Approach (ICD-10-PCS; principal; 2019-08-10)
PROC: 0HQ9XZZ Repair Perineum Skin, External Approach (ICD-10-PCS; 2019-08-10)
DX: O69.81X0 Labor and delivery complicated by cord around neck, without compression, not applicable or unspecified (principal); Z3A.40 40 weeks gestation of pregnancy; Z37.0 Single live birth; O70.0 First degree perineal laceration during delivery
CPT/HCPCS: 36415; 85014; 85018; 85027; 86592; 86850; 86900; 86901; G0378; J0290; J2590; J3010; J3490; J7120

== ENCOUNTER 2020-09-25 20:52 | Emergency (ER) | payer OTHER, MEDICAID ==
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
[2020-10-05 20:31] VITALS: BP 148/82
== END 2020-09-25 23:49 | disposition home or self-care (01) ==
LOC: ED 20:52
DX: S39.012A Strain of muscle, fascia and tendon of lower back, initial encounter (principal); M62.830 Muscle spasm of back; Z79.899 Other long term (current) drug therapy; V49.59XA Passenger injured in collision with other motor vehicles in traffic accident, initial encounter; Y92.410 Unspecified street and highway as the place of occurrence of the external cause; Y93.89 Activity, other specified; Y99.8 Other external cause status
CPT/HCPCS: 99281